=== PATIENT | female | born 1960 | race Caucasian/White ===

== ENCOUNTER 2017-07-12 10:51 | Outpatient (CLI) | payer OTHER | END 2017-07-12 11:03 | disposition home or self-care (01) | LOC: EKG 10:51 | DX: K80.10 Calculus of gallbladder with chronic cholecystitis without obstruction (principal); I10 Essential (primary) hypertension; Z01.811 Encounter for preprocedural respiratory examination ==

== ENCOUNTER 2017-07-20 07:00 | Day surgery (SDC) | payer OTHER | END 2017-07-20 08:00 | disposition home or self-care (01) | LOC: CIR.AMB 07:00 → O/R 11:25 → SURH 11:30 → EDSTATUS 14:15 → SURH 14:15 | DX: K80.10 Calculus of gallbladder with chronic cholecystitis without obstruction (principal) ==

== ENCOUNTER 2017-09-22 06:52 | Emergency (ER) | payer OTHER ==
[~2017-09-22] VITALS: Ht 149.9 cm; Wt 70.3 kg
[2017-09-22] MEDS ORDERED: SYNTHROID125 MCG (07:18)
[2017-09-22] MEDS ORDERED: HYZAAR 50-12.51 EACH (07:18)
[2017-09-22] MEDS ORDERED: KETO10TA2 PO (10:37)
[2017-09-22] MEDS ORDERED: NORFLEX100MG PO (10:37)
== END 2017-09-22 10:38 | disposition home or self-care (01) ==
LOC: ER 06:52
DX: M25.511 Pain in right shoulder (principal); M54.2 Cervicalgia

== ENCOUNTER 2017-10-22 08:22 | Outpatient (CLI) | payer OTHER ==
[~2017-10-22 08:22] MED LIST: HYZAAR 50-12.51 EACH; KETO10TA2 PO; NORFLEX100MG PO; SYNTHROID125 MCG
== END 2017-10-22 08:38 | disposition home or self-care (01) ==
LOC: SONOGRAMA 08:22
DX: M25.511 Pain in right shoulder (principal); R10.9 Unspecified abdominal pain

== ENCOUNTER 2018-05-16 12:25 | Emergency (ER) | payer OTHER ==
[~2018-05-16] VITALS: Ht 149.9 cm; Wt 61.2 kg
== END 2018-05-16 19:31 | disposition home or self-care (01) ==
LOC: ER 12:25
DX: R20.0 Anesthesia of skin (principal)